=== PATIENT | female | born 1975 | race African-American/Black ===

== ENCOUNTER → 2018-02-17 | Outpatient (CLI) | payer OTHER ==
[2018-02-17 14:54] LABS: Candida species (DNA Probe) Negative (NEGATIVE); G. vaginalis (DNA Probe) Negative (NEGATIVE); T. vaginalis (DNA Probe) Negative (NEGATIVE)
[2018-02-19 12:06] LABS: CHLAMYDIA BY NAA Negative (Negative); GONOCOCCUS BY NAA Negative (Negative); TRICH VAG BY NAA Negative (Negative)
== END | disposition home or self-care (01) ==
LOC: LAB EV 13:00 → LAB SHORT 13:00
PROVIDERS: Physician Assistant
DX: N76.0 Acute vaginitis (principal)
CPT/HCPCS: 87480; 87510; 87660

== ENCOUNTER 2018-07-11 15:32 | Emergency (ER) | payer OTHER ==
[~2018-07-11] VITALS: Ht 167.6 cm; Wt 77.1 kg
[2018-07-11] MEDS ORDERED: CYCL10 PO (15:46)
[2018-07-11] MEDS ORDERED: GABA600 PO (15:46)
[2018-07-11] MEDS ORDERED: MELO7.5 PO (15:47)
[2018-07-11] MEDS ORDERED: DOXE25 PO (15:47)
[2018-07-11] MEDS ORDERED: ACYC400 PO (15:47)
== END 2018-07-11 17:10 | disposition home or self-care (01) ==
LOC: ER 15:32
DX: R07.89 Other chest pain (principal); R22.0 Localized swelling, mass and lump, head; T50.995A Adverse effect of other drugs, medicaments and biological substances, initial encounter; Z91.030 Bee allergy status; Z91.040 Latex allergy status; Z79.899 Other long term (current) drug therapy
CPT/HCPCS: 99283

== ENCOUNTER → 2018-10-13 | Outpatient (CLI) | payer OTHER ==
[~2018-10-13] MED LIST: ACYC400 PO; CYCL10 PO; DOXE25 PO; GABA600 PO; MELO7.5 PO
== END | disposition home or self-care (01) ==
LOC: LAB SHORT 11:50 → LAB 11:50
DX: S81.801A Unspecified open wound, right lower leg, initial encounter (principal)
CPT/HCPCS: 87070; 87075; 87205

== ENCOUNTER → 2020-05-29 | Outpatient (CLI) | payer OTHER ==
[2020-06-01 00:07] LABS: CHLAMYDIA BY NAA Negative (Negative); GONOCOCCUS BY NAA Negative (Negative); TRICH VAG BY NAA Negative (Negative)
== END | disposition home or self-care (01) ==
LOC: LAB SHORT 18:09 → PLD 18:09
PROVIDERS: Physician Assistant Medical
DX: N89.8 Other specified noninflammatory disorders of vagina (principal)
CPT/HCPCS: 87070; 87086; 87205; 87491; 87591; 87661

== ENCOUNTER 2020-07-11 11:32 | Emergency (ER) | payer OTHER ==
[~2020-07-11] VITALS: Ht 165.1 cm; Wt 68.0 kg
== END 2020-07-11 14:00 | disposition home or self-care (01) ==
LOC: ER 11:32
DX: F45.8 Other somatoform disorders (principal); Z91.030 Bee allergy status; Z88.6 Allergy status to analgesic agent; Z91.040 Latex allergy status; Z79.899 Other long term (current) drug therapy
CPT/HCPCS: 71046; 93005; 93010; 99283-25; A9270